=== PATIENT | female | born 1985 | race Caucasian/White ===

== ENCOUNTER 2018-05-20 19:30 | Outpatient (CLI) | payer BC ==
[2018-05-20] MEDS: LACTATED RINGER'S 250 ML IV (21:22)
[2018-05-20 21:39] LABS: ADD MAN DIFF? NO
[2018-05-20 21:42] LABS: WHITE BLOOD COUNT 7.7 10^3/ul (4.8-10.8)
[2018-05-20 21:42] LABS: BASOPHILS % 0.3 % (0.0-2.0); EOSINOPHILS # 0.2 10^3/ul (0.0-0.5); HEMATOCRIT 30.5 % (37.0-47.0); HEMOGLOBIN 9.8 g/dl (12.0-16.0); LYMPHOCYTES # 1.5 10^3/ul (0.8-2.9); LYMPHOCYTES % 19.6 % (15.0-51.0); MEAN CORPUSCULAR HEMOGLOBIN 28.4 pg (29.0-33.0); MEAN CORPUSCULAR HGB CONC 32.1 g/dl (32.0-37.0); MEAN CORPUSCULAR VOLUME 88.4 fl (82.0-101.0); MEAN PLATELET VOLUME 9.5 fl (7.4-10.4); MONOCYTE # 0.5 10^3/ul (0.3-0.9); NEUTROPHIL # 5.4 10^3/ul (1.6-7.5); NEUTROPHILS % 70.6 % (39.0-77.0); PLATELET COUNT 256 10^3/UL (140-415); RED BLOOD COUNT 3.45 10^6/ul (4.20-5.40); RED CELL DISTRIBUTION WIDTH 13.2 % (11.5-14.5)
[2018-05-20 21:43] LABS: ADD UMIC NO; UR ASCORBIC ACID NEGATIVE (NEGATIVE); UR BILIRUBIN (Dip) NEGATIVE (NEGATIVE); UR BLOOD (Dip) NEGATIVE (NEGATIVE); UR CLARITY CLEAR (CLEAR); UR COLOR YELLOW (YELLOW); UR GLUCOSE (Dip) NEGATIVE (NEGATIVE); UR KETONES (Dip) NEGATIVE (NEGATIVE); UR LEUKOCYTE ESTERASE (Dip) NEGATIVE Leu/ul (NEGATIVE); UR NITRITE (Dip) NEGATIVE (NEGATIVE); UR SPECIFIC GRAVITY (Dip) 1.017 (1.003-1.030); UR TOTAL PROTEIN (Dip) NEGATIVE (NEGATIVE); UR UROBILINOGEN (Dip) 1+ mg/dL (NEGATIVE)
== END 2018-05-20 22:38 | disposition home or self-care (01) ==
LOC: OBT 19:30 → L-D 19:32 → OBT 22:38
DX: O26.892 Other specified pregnancy related conditions, second trimester (principal); Z3A.28 28 weeks gestation of pregnancy; R10.2 Pelvic and perineal pain
CPT/HCPCS: 36415; 76817; 81003; 82731; 85025; 87086; 96360

== ENCOUNTER 2018-07-04 11:02 | Outpatient (CLI) | payer BC ==
[2018-07-04 12:35] LABS: ADD UMIC NO; UR ASCORBIC ACID NEGATIVE (NEGATIVE); UR BILIRUBIN (Dip) NEGATIVE (NEGATIVE); UR BLOOD (Dip) NEGATIVE (NEGATIVE); UR CLARITY CLEAR (CLEAR); UR COLOR YELLOW (YELLOW); UR GLUCOSE (Dip) NEGATIVE (NEGATIVE); UR KETONES (Dip) NEGATIVE (NEGATIVE); UR LEUKOCYTE ESTERASE (Dip) NEGATIVE Leu/ul (NEGATIVE); UR NITRITE (Dip) NEGATIVE (NEGATIVE); UR SPECIFIC GRAVITY (Dip) 1.017 (1.003-1.030); UR TOTAL PROTEIN (Dip) NEGATIVE (NEGATIVE); UR UROBILINOGEN (Dip) NEGATIVE (NEGATIVE)
[2018-07-04 14:23] LABS: RUPTURE FETAL MEMBRANES NEGATIVE (NEGATIVE)
== END 2018-07-04 15:40 | disposition home or self-care (01) ==
LOC: OBT 11:02 → L-D 11:02 → OBT 15:40
DX: O26.893 Other specified pregnancy related conditions, third trimester (principal); R10.2 Pelvic and perineal pain; Z3A.34 34 weeks gestation of pregnancy
CPT/HCPCS: 76818; 81003; 84112; 87086

== ENCOUNTER 2018-07-12 12:16 | Observation (INO) | payer BC ==
[2018-07-12] MEDS: ACETAMINOPHEN 500 MG TAB PO (18:44)
[2018-07-12] MEDS ORDERED: ACETAMINOPHEN 325 MG TAB PO (20:00)
[2018-07-12 20:45] LABS: ADD MAN DIFF? NO
[2018-07-12 20:48] LABS: BASOPHILS % 0.3 % (0.0-2.0); EOSINOPHILS # 0.2 10^3/ul (0.0-0.5); EOSINOPHILS % 2.2 % (0.0-7.0); HEMATOCRIT 28.8 % (37.0-47.0); HEMOGLOBIN 8.8 g/dl (12.0-16.0); LYMPHOCYTES # 1.5 10^3/ul (0.8-2.9); MEAN CORPUSCULAR HEMOGLOBIN 24.8 pg (29.0-33.0); MEAN CORPUSCULAR HGB CONC 30.6 g/dl (32.0-37.0); MEAN CORPUSCULAR VOLUME 81.1 fl (82.0-101.0); MEAN PLATELET VOLUME 8.9 fl (7.4-10.4); MONOCYTE # 0.7 10^3/ul (0.3-0.9); NEUTROPHIL # 5.3 10^3/ul (1.6-7.5); NEUTROPHILS % 68.9 % (39.0-77.0); PLATELET COUNT 225 10^3/UL (140-415); RED BLOOD COUNT 3.55 10^6/ul (4.20-5.40); RED CELL DISTRIBUTION WIDTH 15.2 % (11.5-14.5)
[2018-07-12 20:48] LABS: WHITE BLOOD COUNT 7.7 10^3/ul (4.8-10.8)
[2018-07-12 20:49] LABS: ADD UMIC NO; UR ASCORBIC ACID NEGATIVE (NEGATIVE); UR BILIRUBIN (Dip) NEGATIVE (NEGATIVE); UR BLOOD (Dip) NEGATIVE (NEGATIVE); UR CLARITY CLEAR (CLEAR); UR COLOR YELLOW (YELLOW); UR GLUCOSE (Dip) NEGATIVE (NEGATIVE); UR KETONES (Dip) NEGATIVE (NEGATIVE); UR LEUKOCYTE ESTERASE (Dip) NEGATIVE Leu/ul (NEGATIVE); UR NITRITE (Dip) NEGATIVE (NEGATIVE); UR SPECIFIC GRAVITY (Dip) 1.019 (1.003-1.030); UR TOTAL PROTEIN (Dip) NEGATIVE (NEGATIVE); UR UROBILINOGEN (Dip) NEGATIVE (NEGATIVE)
[2018-07-12] MEDS: LACTATED RINGER'S 1,000 ML IV (21:21)
[2018-07-13] MEDS: LACTATED RINGER'S 1,000 ML IV ×2 (04:04→11:55)
[2018-07-13] MEDS: PRENATAL VITAMIN PO (08:29)
[2018-07-13] MEDS: DOCUSATE SODIUM 100 MG CAP PO (08:30)
[2018-07-13 11:57] LABS: RUPTURE FETAL MEMBRANES NEGATIVE (NEGATIVE)
== END 2018-07-13 12:20 | disposition home or self-care (01) ==
LOC: OBT 12:16 → L-D 12:16 → OBT 19:38 → L-D 19:38
DX: O60.03 Preterm labor without delivery, third trimester (principal); Z3A.35 35 weeks gestation of pregnancy
CPT/HCPCS: 76818; 81003; 84112; 85025; 99217

== ENCOUNTER 2018-07-14 05:00 | Outpatient (CLI) | payer BC ==
[2018-07-14] MEDS: SOD CHLORIDE 0.9% 1,000 ML IV (10:11)
[2018-07-14] MEDS ORDERED: SOD FERRIC GLUC COMPLX 125 MG in SOD CHLORIDE 0.9% 100 ML IVPB (11:00)
== END 2018-07-14 11:30 | disposition home or self-care (01) ==
LOC: OBT 05:00 → L-D 05:00 → OBT 11:30
DX: O36.8130 Decreased fetal movements, third trimester, not applicable or unspecified (principal); Z3A.36 36 weeks gestation of pregnancy
CPT/HCPCS: 76818

== ENCOUNTER 2018-07-17 10:45 | Outpatient (CLI) | payer BC | END 2018-07-17 13:00 | disposition home or self-care (01) | LOC: OBT 10:45 → L-D 10:46 → OBT 13:00 | DX: O60.03 Preterm labor without delivery, third trimester (principal); Z3A.36 36 weeks gestation of pregnancy | CPT/HCPCS: 76818 ==

== ENCOUNTER 2018-07-21 12:15 | Outpatient (CLI) | payer BC ==
[2018-07-21 13:04] LABS: ADD MAN DIFF? NO
[2018-07-21 13:06] LABS: WHITE BLOOD COUNT 6.2 10^3/ul (4.8-10.8)
[2018-07-21 13:06] LABS: BASOPHILS % 0.3 % (0.0-2.0); EOSINOPHILS # 0.1 10^3/ul (0.0-0.5); EOSINOPHILS % 1.4 % (0.0-7.0); HEMATOCRIT 28.7 % (37.0-47.0); HEMOGLOBIN 8.7 g/dl (12.0-16.0); LYMPHOCYTES # 1.1 10^3/ul (0.8-2.9); LYMPHOCYTES % 18.1 % (15.0-51.0); MEAN CORPUSCULAR HEMOGLOBIN 24.8 pg (29.0-33.0); MEAN CORPUSCULAR HGB CONC 30.3 g/dl (32.0-37.0); MEAN CORPUSCULAR VOLUME 81.8 fl (82.0-101.0); MEAN PLATELET VOLUME 8.8 fl (7.4-10.4); MONOCYTE # 0.5 10^3/ul (0.3-0.9); MONOCYTES % 7.5 % (0.0-11.0); NEUTROPHIL # 4.5 10^3/ul (1.6-7.5); NEUTROPHILS % 71.9 % (39.0-77.0); PLATELET COUNT 204 10^3/UL (140-415); RED BLOOD COUNT 3.51 10^6/ul (4.20-5.40); RED CELL DISTRIBUTION WIDTH 17.3 % (11.5-14.5)
[2018-07-21 13:26] LABS: ALANINE AMINOTRANSFERASE 13 IU/L (13-69); ALBUMIN 3.1 g/dl (3.3-4.9); ALBUMIN/GLOBULIN RATIO 0.96; ALKALINE PHOSPHATASE 123 IU/L (42-121); ANION GAP 20 (5-13); ASPARTATE AMINO TRANSFERASE 16 IU/L (15-46); BLOOD UREA NITROGEN 7 mg/dl (7-20); CALCIUM 8.7 mg/dl (8.4-10.2); CARBON DIOXIDE 23 mmol/L (21-31); CHLORIDE 96 mmol/L (97-110); CREATININE 0.42 mg/dl (0.44-1.00); Estimated GFR > 60 mL/min (>60); GLUCOSE 101 mg/dl (70-220); SODIUM 139 mmol/L (135-144); TOTAL PROTEIN 6.3 g/dl (6.1-8.1); URIC ACID 3.2 mg/dl (3.1-7.9)
[2018-07-21 13:28] LABS: INR 0.94; PROTIME 12.7 Sec (11.9-14.9)
[2018-07-21 13:29] LABS: PARTIAL THROMBOPLASTIN TIME 25.2 Sec (23.0-35.0)
[2018-07-21 14:05] LABS: ADD UMIC NO; UR ASCORBIC ACID NEGATIVE (NEGATIVE); UR BILIRUBIN (Dip) NEGATIVE (NEGATIVE); UR BLOOD (Dip) NEGATIVE (NEGATIVE); UR CLARITY CLEAR (CLEAR); UR COLOR YELLOW (YELLOW); UR GLUCOSE (Dip) NEGATIVE (NEGATIVE); UR KETONES (Dip) NEGATIVE (NEGATIVE); UR LEUKOCYTE ESTERASE (Dip) NEGATIVE Leu/ul (NEGATIVE); UR NITRITE (Dip) NEGATIVE (NEGATIVE); UR TOTAL PROTEIN (Dip) NEGATIVE (NEGATIVE); UR UROBILINOGEN (Dip) NEGATIVE (NEGATIVE)
[2018-07-21 15:31] LABS: RUPTURE FETAL MEMBRANES NEGATIVE (NEGATIVE)
== END 2018-07-21 15:50 | disposition home or self-care (01) ==
LOC: OBT 12:15 → L-D 12:18 → OBT 15:50
DX: O41.8X30 Other specified disorders of amniotic fluid and membranes, third trimester, not applicable or unspecified (principal); O36.8330 Maternal care for abnormalities of the fetal heart rate or rhythm, third trimester, not applicable or unspecified; Z3A.37 37 weeks gestation of pregnancy
CPT/HCPCS: 76818; 80053; 81003; 84112; 84560; 85025; 85610; 85730

== ENCOUNTER 2018-07-24 15:57 | Inpatient (IN) | payer BC ==
[2018-07-24] MEDS ORDERED: LIDOCAINE 1% (MPF) 30 ML INJ INJ (16:30)
[2018-07-24] MEDS ORDERED: BUTORPHANOL 1 MG INJ IV (16:30)
[2018-07-24] MEDS ORDERED: IBUPROFEN 600 MG TAB PO (16:30)
[2018-07-24] MEDS ORDERED: METHYLERGONOVINE 0.2 MG INJ IM (16:30)
[2018-07-24] MEDS ORDERED: MISOPROSTOL 200 MCG TAB PR (16:30)
[2018-07-24] MEDS ORDERED: CARBOPROST 250 MCG INJ IM (16:30)
[2018-07-24] MEDS ORDERED: BUTORPHANOL 2 MG INJ IV (16:30)
[2018-07-24] MEDS ORDERED: OXYTOCIN 30 UNITS/LR 500 ML IV ×2 (16:30)
[2018-07-24 17:10] LABS: ADD MAN DIFF? NO; BASOPHILS % 0.3 % (0.0-2.0); EOSINOPHILS # 0.1 10^3/ul (0.0-0.5); EOSINOPHILS % 1.9 % (0.0-7.0); HEMATOCRIT 29.9 % (37.0-47.0); HEMOGLOBIN 9.2 g/dl (12.0-16.0); LYMPHOCYTES # 1.3 10^3/ul (0.8-2.9); LYMPHOCYTES % 18.2 % (15.0-51.0); MEAN CORPUSCULAR HEMOGLOBIN 24.9 pg (29.0-33.0); MEAN CORPUSCULAR HGB CONC 30.8 g/dl (32.0-37.0); MEAN CORPUSCULAR VOLUME 80.8 fl (82.0-101.0); MEAN PLATELET VOLUME 9.4 fl (7.4-10.4); MONOCYTE # 0.6 10^3/ul (0.3-0.9); MONOCYTES % 9.1 % (0.0-11.0); NEUTROPHIL # 4.8 10^3/ul (1.6-7.5); NEUTROPHILS % 69.8 % (39.0-77.0); PLATELET COUNT 246 10^3/UL (140-415); RED CELL DISTRIBUTION WIDTH 17.3 % (11.5-14.5)
[2018-07-24 17:10] LABS: WHITE BLOOD COUNT 6.9 10^3/ul (4.8-10.8)
[2018-07-24 17:29] LABS: INR 0.95; PARTIAL THROMBOPLASTIN TIME 26.2 Sec (23.0-35.0); PROTIME 12.8 Sec (11.9-14.9)
[2018-07-24 19:07] LABS: HEPATITIS B SURFACE ANTIGEN NEGATIVE (NEGATIVE)
[2018-07-24] MEDS: LACTATED RINGER'S 1,000 ML IV ×2 (19:30→21:36)
[2018-07-24] MEDS: MISOPROSTOL 50 MCG CAPSULE PO (21:24)
[2018-07-25] MEDS: MISOPROSTOL 50 MCG CAPSULE PO ×3 (01:11→09:57)
[2018-07-25] MEDS: LACTATED RINGER'S 1,000 ML IV ×4 (04:27→16:08)
[2018-07-25] MEDS: NA PHOSPHATE/BIPHOS 133 ML ENEMA PR (09:21)
[2018-07-25] MEDS ORDERED: FENTAnyl 2MCG/ML-ROPIV 0.2% 100 ML (13:22)
[2018-07-25] MEDS ORDERED: NALOXONE (0.4 MG/ML) INJ IV (14:00)
[2018-07-25] MEDS: FENTAnyl 2MCG/ML-ROPIV 0.2% 100 ML BAG EPI (15:15)
[2018-07-25] MEDS: OXYTOCIN 30 UNITS/LR 500 ML IV ×2 (15:20→20:20)
[2018-07-25 18:09] LABS: RAPID PLASMA REAGIN NONREACTIVE (NR)
[2018-07-25] MEDS: DIPHENHYDRAMINE 50 MG INJ IV (18:38)
[2018-07-25] MEDS ORDERED: OXYTOCIN 30 UNITS/LR 500 ML IV (20:30)
[2018-07-25] MEDS ORDERED: DIPHENHYDRAMINE 50 MG INJ IV (20:30)
[2018-07-25] MEDS ORDERED: MISOPROSTOL 200 MCG TAB PR (20:30)
[2018-07-25] MEDS ORDERED: DIPHENHYDRAMINE 25 MG CAP PO (20:30)
[2018-07-25] MEDS ORDERED: ONDANSETRON 4 MG TAB PO (20:30)
[2018-07-25] MEDS ORDERED: ONDANSETRON 4 MG INJ IV (20:30)
[2018-07-25] MEDS ORDERED: HYDROCODONE/APAP (5/325) TAB PO (20:30)
[2018-07-25] MEDS ORDERED: METHYLERGONOVINE 0.2 MG INJ IM (20:30)
[2018-07-25] MEDS ORDERED: CARBOPROST 250 MCG INJ IM (20:30)
[2018-07-25] MEDS ORDERED: ACETAMINOPHEN 325 MG TAB PO ×2 (20:30)
[2018-07-26] MEDS: BENZOCAINE 20% 56 ML SPRAY TOP (00:08)
[2018-07-26] MEDS: DIBUCAINE 1% 30 GM OINT TOP (00:08)
[2018-07-26] MEDS: IBUPROFEN 800 MG TAB PO ×4 (00:08→17:25)
[2018-07-26] MEDS: HYDROCODONE/APAP (5/325) TAB PO ×2 (00:08→06:17)
[2018-07-26] MEDS: LACTATED RINGER'S 1,000 ML IV* ×2 (00:10→04:15)
[2018-07-26 07:46] LABS: ADD MAN DIFF? NO
[2018-07-26 07:52] LABS: WHITE BLOOD COUNT 8.8 10^3/ul (4.8-10.8)
[2018-07-26 07:52] LABS: BASOPHILS % 0.3 % (0.0-2.0); EOSINOPHILS # 0.1 10^3/ul (0.0-0.5); EOSINOPHILS % 1.6 % (0.0-7.0); HEMATOCRIT 27.6 % (37.0-47.0); HEMOGLOBIN 8.4 g/dl (12.0-16.0); LYMPHOCYTES # 1.5 10^3/ul (0.8-2.9); LYMPHOCYTES % 17.2 % (15.0-51.0); MEAN CORPUSCULAR HEMOGLOBIN 24.6 pg (29.0-33.0); MEAN CORPUSCULAR HGB CONC 30.4 g/dl (32.0-37.0); MEAN CORPUSCULAR VOLUME 80.9 fl (82.0-101.0); MEAN PLATELET VOLUME 9.7 fl (7.4-10.4); MONOCYTE # 0.8 10^3/ul (0.3-0.9); MONOCYTES % 9.2 % (0.0-11.0); NEUTROPHIL # 6.3 10^3/ul (1.6-7.5); NEUTROPHILS % 71.1 % (39.0-77.0); PLATELET COUNT 220 10^3/UL (140-415); RED BLOOD COUNT 3.41 10^6/ul (4.20-5.40); RED CELL DISTRIBUTION WIDTH 17.6 % (11.5-14.5)
[2018-07-26] MEDS: LANOLIN HPA 1 PKT TOP (10:37)
[2018-07-26] MEDS: MAGNESIUM HYDROXIDE 30ML CUP PO (10:37)
[2018-07-26] MEDS: VARICELLA VACCINE LIVE/PF 1,350 UNIT/0.5 ML ML SC* (15:17)
[2018-07-26] MEDS: CAFFEINE 200 MG TABLET PO ×2 (17:00→21:00)
[2018-07-26] MEDS: SOD FERRIC GLUC COMPLX 125 MG in SOD CHLORIDE 0.9% 100 ML IVPB (17:43)
[2018-07-27] MEDS: IBUPROFEN 800 MG TAB PO ×4 (01:37→17:52)
[2018-07-27] MEDS: HYDROCODONE/APAP (5/325) TAB PO (02:46)
[2018-07-27] MEDS: CAFFEINE 200 MG TABLET PO ×3 (09:00→17:00)
[2018-07-27] MEDS: MEASLES,MUMPS,RUBELLA VACCINE INJ SC* (09:00)
[2018-07-27] MEDS: DIPHTH/TET/ACEL PERTUSS (ADULT) 0.5 ML VIAL IM* (09:00)
[2018-07-27] MEDS: SENNA/DOCUSATE NA (8.6MG/50MG) TAB PO (17:52)
[2018-07-27] MEDS: BENZOCAINE 20% 56 ML SPRAY TOP (17:54)
[2018-07-27] MEDS: DIBUCAINE 1% 30 GM OINT TOP (17:54)
== END 2018-07-27 19:00 | disposition home or self-care (01) | DRG 807 ==
LOC: L-D 15:57 → PP1 07-25 22:30
PROVIDERS: Obstetrics & Gynecology
PROC: 10E0XZZ Delivery of Products of Conception, External Approach (ICD-10-PCS; principal; 2018-07-25)
PROC: 0HQ9XZZ Repair Perineum Skin, External Approach (ICD-10-PCS; 2018-07-25)
DX: O41.03X0 Oligohydramnios, third trimester, not applicable or unspecified (principal); O69.81X0 Labor and delivery complicated by cord around neck, without compression, not applicable or unspecified; O74.5 Spinal and epidural anesthesia-induced headache during labor and delivery; O70.0 First degree perineal laceration during delivery; Z3A.37 37 weeks gestation of pregnancy; Z37.0 Single live birth
CPT/HCPCS: 62319; 76815; 76818; 85025; 85610; 85730; 86592; 86850; 86900; 86901; 87340; 90716; 99464